=== PATIENT | female | born 1950 | race Caucasian/White ===

== ENCOUNTER → 2020-04-22 | Outpatient (CLI) | payer MEDICARE, OTHER ==
[~2020-04-22] MED LIST: NORVASC 5 MG TAB5 MG PO
[2020-04-22 09:07] LABS: HEMOGLOBIN 10.7 gm/dl (12.3-15.3); RED BLOOD COUNT 3.77 M/UL (4.00-5.10); WHITE BLOOD COUNT 11.9 K/UL (4.5-11.0)
== END ==
LOC: CT 08:32
PROVIDERS: Internal Medicine Hematology & Oncology
DX: C50.512 Malignant neoplasm of lower-outer quadrant of left female breast (principal); R91.8 Other nonspecific abnormal finding of lung field
CPT/HCPCS: 36415; 71250; 80053; 83615; 85027; Q9963

== ENCOUNTER → 2021-04-18 | Outpatient (CLI) | payer MEDICARE | LOC: KOH-I 04-14 14:00 | DX: C50.512 Malignant neoplasm of lower-outer quadrant of left female breast (principal); R91.8 Other nonspecific abnormal finding of lung field | CPT/HCPCS: 71250 ==